=== PATIENT | female | born 1980 | race Hispanic/Latino ===

== ENCOUNTER 2021-11-19 01:22 | Emergency (ER) | payer BC ==
[~2021-11-19] VITALS: Ht 170.2 cm; Wt 81.6 kg
[~2021-11-19 01:22] MED LIST: DIFLUNISAL500 MG PO; ORPHENADRINE C100 MG PO
[2021-11-19] MEDS ORDERED: IBUPROFEN 600 MG TAB PO STA (02:09)
[2021-11-19] MEDS ORDERED: IBUPROFEN 600 MG TAB ONE (02:21)
== END 2021-11-19 04:09 | disposition home or self-care (01) ==
LOC: ER 01:33
DX: S90.32XA Contusion of left foot, initial encounter (principal); S90.31XA Contusion of right foot, initial encounter; W10.9XXA Fall (on) (from) unspecified stairs and steps, initial encounter; Y93.01 Activity, walking, marching and hiking; F17.210 Nicotine dependence, cigarettes, uncomplicated; F12.90 Cannabis use, unspecified, uncomplicated
CPT/HCPCS: 99283